=== PATIENT | male | born 1985 | race Caucasian/White ===

== ENCOUNTER → 2019-07-14 | Day surgery (SDC) | payer SELFPAY ==
[~2019-07-14] MED LIST: Midazolam 1 MG/ML 2 ML SDV ONE; fentaNYL 100 MCG/2 ML SDV ONE
[2019-07-14 06:50] VITALS: BP 153/98; PULSE 75
== END ==
LOC: DL.ENDO 06:32
PROVIDERS: ATTEND Internal Medicine Gastroenterology
DX: R19.7 Diarrhea, unspecified (principal); R11.0 Nausea; R07.89 Other chest pain; Z53.09 Procedure and treatment not carried out because of other contraindication

== ENCOUNTER 2022-02-04 20:10 | Emergency (ER) | payer SELFPAY | END 2022-02-05 03:23 | disposition left against medical advice (07) | LOC: DL.ED 20:10 → MERGE 20:10 → DL.ED 02-05 03:23 | DX: Z53.21 Procedure and treatment not carried out due to patient leaving prior to being seen by health care provider (principal) ==

== ENCOUNTER 2022-03-28 06:06 | Day surgery (SDC) | payer BC ==
[~2022-03-28 06:06] MED LIST changes: +Dextrose 5%-0.45% NaCl 1,000 ML IV SCH; -Midazolam 1 MG/ML 2 ML SDV ONE; +Sodium Chloride 0.9% 10 ML Syringe FLUSH PRN; +Sodium Chloride 0.9% 10 ML Syringe FLUSH SCH; -fentaNYL 100 MCG/2 ML SDV ONE
[2022-03-28] MEDS ORDERED: fentaNYL 100 MCG/2 ML SDV IV ONE ×4 (06:07→07:16)
[2022-03-28] MEDS ORDERED: Midazolam 1 MG/ML 2 ML SDV IV ONE ×6 (06:07→07:14)
[2022-03-28] MEDS ORDERED: Midazolam 1 MG/ML 2 ML SDV ONE (06:16)
[2022-03-28] MEDS ORDERED: fentaNYL 100 MCG/2 ML SDV ONE (06:16)
== END 2022-03-28 09:12 | disposition home or self-care (01) ==
LOC: DL.ENDO 06:06
PROVIDERS: ATTEND Internal Medicine Gastroenterology
DX: D12.2 Benign neoplasm of ascending colon (principal); K64.4 Residual hemorrhoidal skin tags; K64.8 Other hemorrhoids; E66.09 Other obesity due to excess calories; I10 Essential (primary) hypertension; E78.00 Pure hypercholesterolemia, unspecified; F41.1 Generalized anxiety disorder; Z88.0 Allergy status to penicillin; Z68.28 Body mass index [BMI] 28.0-28.9, adult
CPT/HCPCS: J2250; J3010; J7042

== ENCOUNTER 2022-10-07 15:54 | Emergency (ER) | payer BC ==
[2022-10-07] MEDS ORDERED: Dexamethasone 4 MG/ML SDV IM ONE (17:40)
== END 2022-10-07 17:58 | disposition home or self-care (01) ==
LOC: DL.ED 15:54
DX: S39.012A Strain of muscle, fascia and tendon of lower back, initial encounter (principal); E78.00 Pure hypercholesterolemia, unspecified; I10 Essential (primary) hypertension; Z88.0 Allergy status to penicillin; Z79.899 Other long term (current) drug therapy; X50.1XXA Overexertion from prolonged static or awkward postures, initial encounter
CPT/HCPCS: 96372; 99283; J1100

== ENCOUNTER 2023-09-22 14:29 | Emergency (ER) | payer BC ==
[2023-09-22] MEDS: Gentamicin 0.3% Ophth Soln 5 ML Bottle EYEBOTH ONE (15:29)
== END 2023-09-22 15:45 | disposition home or self-care (01) ==
LOC: DL.ED 14:29
DX: H10.33 Unspecified acute conjunctivitis, bilateral (principal); I10 Essential (primary) hypertension; E78.00 Pure hypercholesterolemia, unspecified; Z79.899 Other long term (current) drug therapy; Z88.0 Allergy status to penicillin
CPT/HCPCS: 99282; 99283; A9270

== ENCOUNTER 2024-06-03 17:16 | Emergency (ER) | payer BC ==
[2024-06-03] MEDS: Ondansetron 4 MG Tab.DIS PO ONE (18:09)
[2024-06-03] MEDS: Ketorolac 30 MG/ML SDV IM ONE (18:16)
[2024-06-03] MEDS: Ondansetron 4 MG/2 ML SDV IVPUSH ONE (18:17)
== END 2024-06-03 18:30 | disposition home or self-care (01) ==
LOC: DL.ED 17:16
DX: J10.1 Influenza due to other identified influenza virus with other respiratory manifestations (principal); I10 Essential (primary) hypertension; E78.00 Pure hypercholesterolemia, unspecified; Z88.0 Allergy status to penicillin; Z79.899 Other long term (current) drug therapy
CPT/HCPCS: 87428; 96372; 99283; A9270; J1885

== ENCOUNTER 2024-08-02 23:41 | Emergency (ER) | payer BC ==
[2024-08-03] MEDS: Promethazine 25 MG Tab PO ONE (01:35)
[2024-08-03] MEDS: diphenhydrAMINE 25 MG Tab PO ONE (01:35)
[2024-08-03] MEDS: Ketorolac 10 MG Tab PO ONE (01:35)
== END 2024-08-03 01:39 | disposition home or self-care (01) ==
LOC: DL.ED 23:41
DX: G43.909 Migraine, unspecified, not intractable, without status migrainosus (principal); I10 Essential (primary) hypertension; E78.00 Pure hypercholesterolemia, unspecified; Z88.0 Allergy status to penicillin; Z79.899 Other long term (current) drug therapy
CPT/HCPCS: 99283; A9270; Q0169

== ENCOUNTER 2024-12-04 15:21 | Emergency (ER) | payer BC | END 2024-12-04 16:01 | disposition home or self-care (01) | LOC: DL.ED 15:21 | DX: K52.9 Noninfective gastroenteritis and colitis, unspecified (principal); E78.00 Pure hypercholesterolemia, unspecified; I10 Essential (primary) hypertension; Z88.0 Allergy status to penicillin; Z79.899 Other long term (current) drug therapy | CPT/HCPCS: 99283 ==